=== PATIENT | female | born 1960 | race Caucasian/White ===

== ENCOUNTER → 2023-08-20 | Outpatient (CLI) | payer MEDICAID, SELFPAY ==
[2023-08-20 14:49] LABS: Amphetamine Urine VISTA NEGATIVE (<1000 ng/mL); Barbiturate Urine VISTA NEGATIVE (< 200 ng/mL); Benzodiazepine Urine VISTA NEGATIVE (< 200 ng/mL); Cocaine Urine VISTA NEGATIVE (< 300 ng/mL); Ecstacy Urine VISTA NEGATIVE (< 500 ng/mL); Methadone Urine VISTA NEGATIVE (< 300 ng/mL); PCP Urine VISTA NEGATIVE (< 25 ng/mL); THC Urine VISTA NEGATIVE (< 50 ng/mL); Vista UDS pH Range 5
== END | disposition home or self-care (01) ==
PROVIDERS: PCP Internal Medicine; Referring Provider Anesthesiology; Visit Provider Anesthesiology
DX: F11.20 Opioid dependence, uncomplicated (principal)
CPT/HCPCS: 80307

== ENCOUNTER → 2024-05-06 | Outpatient (CLI) | payer MEDICAID, SELFPAY ==
[2024-05-06 12:11] LABS: Amphetamine Urine VISTA NEGATIVE (<1000 ng/mL); Barbiturate Urine VISTA NEGATIVE (< 200 ng/mL); Benzodiazepine Urine VISTA NEGATIVE (< 200 ng/mL); Cocaine Urine VISTA NEGATIVE (< 300 ng/mL); Ecstacy Urine VISTA NEGATIVE (< 500 ng/mL); Methadone Urine VISTA NEGATIVE (< 300 ng/mL); PCP Urine VISTA NEGATIVE (< 25 ng/mL); THC Urine VISTA NEGATIVE (< 50 ng/mL); Vista UDS pH Range 6
== END | disposition home or self-care (01) ==
PROVIDERS: PCP Internal Medicine; Referring Provider Anesthesiology; Visit Provider Anesthesiology
DX: F11.20 Opioid dependence, uncomplicated (principal)
CPT/HCPCS: 80307

== ENCOUNTER → 2024-06-02 | Outpatient (CLI) | payer MEDICAID, SELFPAY ==
--- NOTE | 2024-06-02 16:04 | RAD_ITS ---
PROCEDURE: RIBS UNI MIN 3V W/PA CHEST REASON FOR EXAM: Left chest pain. TECHNIQUE: Frontal and oblique views of the left ribs. Frontal view of the chest. COMPARISON: None. FINDINGS: The heart size is normal. The lungs are clear. No pneumothorax or pleural effusion. No displaced rib fractures are identified. RAD/Ribs Uni Min 3V w/PA Chest IMPRESSION: No acute fractures. Reading Location: [id number]
== END | disposition home or self-care (01) ==
LOC: RAD 15:56
PROVIDERS: PCP Internal Medicine; Referring Provider Anesthesiology; Visit Provider Anesthesiology
DX: R07.89 Other chest pain (principal)
CPT/HCPCS: 71101

== ENCOUNTER → 2024-10-18 | Outpatient (CLI) | payer MEDICAID, SELFPAY ==
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
--- NOTE | 2024-10-18 10:34 | MRI_ITS ---
PROCEDURE: SPINE LUMBAR (ROUTINE) 10/18/2024 REASON FOR EXAM: RADICULOPATHY TECHNIQUE: SPINE LUMBAR (ROUTINE) COMPARISON: none FINDINGS: 1st degree anterolithesis L4 over L5 and L5 over the sacrum secondary to L4-L5 and L5-S1 bilateral degenerative facet arthropathy. Mild retrolisthesis of L3. Straightened lumbar lordosis denoting myospasm No vertebral structural collapse, vertebral bodies or posterior neural elements fractures. Multilevel marginal osteophytic lipping and subchondral marrow degenerative signal of mixed Modio I and Modic II of the lumbar vertebral end plates. Variable degrees of reduced height and bright T2 signal of the intervertebral discs denoting their desiccation. Ligamneta flava hypertrophy opposite L1-L2 down to L5-S1 levels along with multilevel degenerative facet arthropathy adding to the central canal and neural foraminal stenosis. T11-T12: There is no focal disc pathology, central canal stenosis or neural foraminal stenosis. T12-L1: a 1.5 mm diffuse disc bulge indenting the theca and encroaching upon the related neural exit foramina inducing marked right and moderate left exiting nerve roots compression. L1-L2: a 2.3 mm diffuse disc bulge with left foraminal protrusion indenting the theca and encroaching upon the related neural exit foramina inducing marked left and moderate right exiting nerve roots compression. L2-L3: a 2.3 mm diffuse disc bulge indenting the theca and encroaching upon the related neural exit foramina inducing marked right and moderate left exiting nerve roots compression. L3-L4: a 4 mm diffuse disc bulge indenting the theca and encroaching upon the related neural exit foramina inducing marked right and moderate left exiting nerve roots compression. L4-L5: a 1.5 mm diffuse disc bulge indenting the theca and encroaching upon the related neural exit foramina inducing moderate exiting nerve roots compression. L5-S1: a diffuse disc pseudo-bulge indenting the theca and encroaching upon the related neural exit foramina inducing moderate exiting nerve roots compression. The lower dorsal spinal cord, conus medullaris, and cauda equina nerve roots are unremarkable. No marrow infiltrative lesions. No paraspinal soft tissue abnormalities. Orthostatic edema of the back. MRI/Spine Lumbar (Routine) IMPRESSION: 1st degree anterolithesis L4 and L5. Straightened lumbar lordosis denoting myospasm Lumbar spondylosis with multilevel discs pathologies, facet arthropathy and hyp ertrophied ligamneta flava inducing variable degrees of spinal canal and neural exit pathways compromise as detailed. Reading Location: [id number]
== END | disposition home or self-care (01) ==
LOC: OPMRI 10:28
PROVIDERS: PCP Internal Medicine; Referring Provider Anesthesiology; Visit Provider Anesthesiology
DX: M54.16 Radiculopathy, lumbar region (principal)
CPT/HCPCS: 70030; 72148